=== PATIENT | male | born 2005 | race Caucasian/White ===

== ENCOUNTER 2024-06-09 16:24 | Outpatient (CLI) | payer BC ==
[2024-06-09 16:47] LABS: Hematocrit 46.2 % (42.0-52.0); Hemoglobin 14.6 g/dL (14.0-18.0); Mean Corpuscular HGB CONC 31.6 g/dL (32.0-36.0); Mean Corpuscular Hemoglobin 26.7 pg (25.0-35.0); Mean Corpuscular Volume 84.5 fL (78.0-98.0); Mean Platelet Volume 8.5 fL (7.4-10.4); Platelet Count 278 10x3/uL (130-400); RBC Distribution Width 12.7 % (11.5-14.5); Red Blood Cell (RBC) Count 5.47 mill/uL (4.00-5.20)
== END 2024-06-09 16:25 | disposition home or self-care (01) ==
LOC: LABBT 16:24
PROVIDERS: ATTEND Orthopaedic Surgery
DX: Z01.812 Encounter for preprocedural laboratory examination (principal); S62.211A Bennett's fracture, right hand, initial encounter for closed fracture
CPT/HCPCS: 85027

== ENCOUNTER 2024-06-11 08:46 | Day surgery (SDC) | payer BC ==
[2024-06-09 16:43] VITALS: BMI 22.9
[2024-06-11] MEDS ORDERED: fentaNYL PF 100 MCG/2 ML SYRINGE ONE (09:39)
[2024-06-11] MEDS ORDERED: Midazolam HCl 2 mg/2 ml Vial ONE (09:39)
[2024-06-11] MEDS ORDERED: PROPOFOL 20 ML ONE (09:39)
[2024-06-11] MEDS ORDERED: Lidocaine 2% PF 5 ML VIAL ONE (09:41)
[2024-06-11] MEDS ORDERED: Dexamethasone 4 mg/ml Vial ONE (10:13)
[2024-06-11] MEDS ORDERED: Ketorolac Tromethamine 30 MG (1 mL) VIAL ONE (10:13)
[2024-06-11] MEDS ORDERED: Ketamine In 0.9 % NaCl 50 MG/5 ML SYRINGE ONE (10:13)
[2024-06-11] MEDS ORDERED: Ondansetron PF 4 MG/2 ML Vial ONE (10:13)
[2024-06-11] MEDS ORDERED: CEFAZOLIN 1 GM VIAL ONE (10:14)
[2024-06-11] MEDS ORDERED: fentaNYL 50 mcg/mL 1 mL Vial ONE ×2 (10:37→12:19)
[2024-06-11] MEDS ORDERED: HYDROcodone/Acetaminophen 5/325 mg Tablet ONE (13:40)
[2024-06-11] MEDS ORDERED: Lidocaine 1% (PF) 30 ML VIAL ONE (14:37)
== END 2024-06-11 14:35 | disposition home or self-care (01) ==
LOC: SDC 08:46
PROVIDERS: ATTEND Orthopaedic Surgery
PROC: 0PST04Z Reposition Right Finger Phalanx with Internal Fixation Device, Open Approach (ICD-10-PCS; principal; 2024-06-11)
DX: S62.211A Bennett's fracture, right hand, initial encounter for closed fracture (principal); W21.221A Struck by field hockey puck, initial encounter
CPT/HCPCS: A6223; J0690; J1100; J1885; J2250; J2405; J2704; J3010; J3490

== ENCOUNTER 2024-07-30 10:51 | Day surgery (SDC) | payer BC ==
[2024-07-29 10:02] VITALS: BMI 22.9
[2024-07-30] MEDS ORDERED: Bacitracin Zinc Ointment 30 gm TUBE ONE (11:30)
[2024-07-30] MEDS ORDERED: Bupivacaine PF 0.5% 30 ML VIAL ONE (11:31)
[2024-07-30] MEDS ORDERED: CEFAZOLIN 2 GM VIAL ONE (11:46)
[2024-07-30] MEDS ORDERED: fentaNYL 50 mcg/mL 1 mL Vial ONE (12:14)
[2024-07-30] MEDS ORDERED: Ondansetron PF 4 MG/2 ML Vial ONE (12:14)
[2024-07-30] MEDS ORDERED: PROPOFOL 20 ML ONE (12:14)
[2024-07-30] MEDS ORDERED: Ketorolac Tromethamine 30 MG (1 mL) VIAL ONE (12:14)
[2024-07-30] MEDS ORDERED: Lidocaine 1% PF 5 ML VIAL ONE (12:14)
[2024-07-30] MEDS ORDERED: Midazolam HCl 2 mg/2 ml Vial ONE (12:18)
== END 2024-07-30 15:00 | disposition home or self-care (01) ==
LOC: SDC 10:51
PROVIDERS: ATTEND Orthopaedic Surgery
PROC: 0RPW04Z Removal of Internal Fixation Device from Right Finger Phalangeal Joint, Open Approach (ICD-10-PCS; principal; 2024-07-30)
DX: S62.211D Bennett's fracture, right hand, subsequent encounter for fracture with routine healing (principal); Z98.890 Other specified postprocedural states; X58.XXXD Exposure to other specified factors, subsequent encounter
CPT/HCPCS: A6223; J0665; J1885; J2250; J2405; J2704; J3010

== ENCOUNTER 2025-07-08 11:08 | Outpatient (CLI) | payer BC | END 2025-07-08 11:09 | disposition home or self-care (01) | LOC: SCSRAD 11:08 | PROVIDERS: ATTEND Family Medicine | DX: S99.912A Unspecified injury of left ankle, initial encounter (principal); S82.62XA Displaced fracture of lateral malleolus of left fibula, initial encounter for closed fracture ==